=== PATIENT | female | born 1970 | race Caucasian/White ===

== ENCOUNTER → 2021-11-15 11:00 | Outpatient (BNVA) | payer BC, SELFPAY | PROVIDERS: PCP Family Medicine Adult Medicine; Visit Provider Registered Nurse Neonatal Intensive Care | DX: N39.0 Urinary tract infection, site not specified (principal); R39.9 Unspecified symptoms and signs involving the genitourinary system | CPT/HCPCS: 81000; 87086 ==

== ENCOUNTER 2021-12-20 08:57 | Outpatient (CLI) | payer BC, SELFPAY ==
--- NOTE | 2021-12-20 09:15 | US_ITS ---
WS: [id number] Complete ABDOMINAL ULTRASOUND HISTORY: left ureter obstruction COMPARISON: None available. Liver: 16.1 cm in length. Liver is normal size and echogenicity with no mass or intrahepatic dilatati on. Portal Vein: Normal hepatopetal flow with monophasic waveform. Gallbladder: Normally distended gallbladder. There is a mobile stone within the gallbladder. No peric holecystic fluid or gallbladder wall thickening. Largest diameter of the stone is 1.5 cm. Gallbladder wall thickness: 0.2 cm. Pancreas: Normal size and echogenicity. CBD: 0.5 cm. Right kidney: 10.2 cm x 5.4 cm x 5.4 cm. No mass, cortical thickening or hydronephrosis. Left kidney: 10.3 cm x 4.3 cm x 5.6 cm. No mass, cortical thickening or hydronephrosis. Spleen: Normal size and echogenicity. Abdominal aorta and IVC are within normal limits. No ascites. US/US abdomen complete* [id number] IMPRESSION: 1. Cholelithiasis without acute cholecystitis. 2. Otherwise normal abdominal ultrasound.
== END 2021-12-20 08:58 | disposition home or self-care (01) ==
PROVIDERS: PCP Family Medicine Adult Medicine; Visit Provider Family Medicine Adult Medicine
DX: N99.81 Other intraoperative complications of genitourinary system (principal); R30.1 Vesical tenesmus; S37.10XA Unspecified injury of ureter, initial encounter
CPT/HCPCS: 76700

== ENCOUNTER 2021-12-31 12:39 | Outpatient (CLI) | payer BC, SELFPAY ==
--- NOTE | 2021-12-31 12:57 | MM_ITS ---
WS: [id number] BILATERAL 3D TOMOSYNTHESIS DIGITAL SCREENING MAMMOGRAPHY WITH CAD CLINICAL INFORMATION: SCREENING HISTORY: Screening mammogram. No current complaints. COMPARISON: 02/26/2021 and 02/17/2021 TECHNIQUE: Bilateral CC and MLO views. FINDINGS: The breasts are composed of heterogeneous fibroglandular density tissue, which can limit the detectio n of small underlying mass lesions. A few tiny lucent centered and punctate calcifications. Biopsy cl ip RIGHT breast. No suspicious mass, asymmetry, calcifications, or architectural distortion. No evide nce of malignancy. MM/[id number] IMPRESSION: BI-RADS: 2-Benign FOLLOW UP: 1 Year Follow-up Recommend return to annual screening mammography.
== END 2021-12-31 12:40 | disposition home or self-care (01) ==
PROVIDERS: PCP Family Medicine Adult Medicine; Visit Provider Family Medicine Adult Medicine
DX: Z12.31 Encounter for screening mammogram for malignant neoplasm of breast (principal); R39.89 Other symptoms and signs involving the genitourinary system
CPT/HCPCS: 77063; 77067; 81003; 87086

== ENCOUNTER 2022-01-05 08:04 | Day surgery (SDC) | payer BC, SELFPAY ==
[2022-01-04 09:21] VITALS: BMI 33.9
[2022-01-05 08:32] VITALS: BP 111/60; PULSE 76; RESP 18; TEMP 36.1; O2SAT 94
[2022-01-05] MEDS: sodium chloride 0.9% 1,000 ML 30 ML IV (08:41)
--- NOTE | 2022-01-05 09:51 | ANES.PREANE2 ---
Pre-Anesthetic Assessment Height/Weight: Height 1.68 m Weight 95.254 kg Temp Pulse Resp BP Pulse Ox 97.0 F L 76 18 111/60 94 01/05/22 08:32 01/05/22 08:32 01/05/22 08:32 01/05/22 08:32 01/05/22 08:32 Operation Date: 01/05/22 10:15 Proposed Procedures p Colonoscopy 57481/Z12.11(Not Applicable) - Casper Dykes MD Familial anesthetic complications: None Was Beta Alyssa taken within 24 hours: N/A Was Clonidine taken within 24 hours: N/A Last intake: Intake Last Liquid Date 01/04/22 Last Liquid Time 22:30 Last Solid Date 01/03/22 Last Solid Time 18:00 Social Tobacco and No alcohol Exam alert, oriented x 3, clear to auscultation bilaterally and regular rate & rhythm Airway Submandibular: within normal limits Cervical ROM: within normal limits Mallampati: Class II Dentition: full Pulmonary Chronic Obstructive Pulmonary Disease recurrent UTI Metabolic Morbid Obesity Anesthetic Plan ASA status: 2 Anesthesia: MAC Medications/Allergies Home Medications Medication Instructions Recorded Confirmed Last Taken Type cholecalciferol (vitamin D3) 1,000 cap PO DAILY 11/24/21 01/04/22 01/03/22 History cranberry extract 4,200 mg PO TID 11/24/21 01/04/22 01/03/22 History oxybutynin chloride 10 mg See Rx Instructions .ROUTE 11/24/21 01/04/22 01/04/22 Rx tablet,extended release 24 hr .COMPLEX #90 tab gghiztn-hjcnrkeuf-xnrwui-zinc 1 tab PO DAILY tab 12/31/21 01/04/22 01/04/22 History tablet nitrofurantoin 100 mg PO BID #60 cap 12/31/21 01/04/22 01/04/22 Rx monohydrate/macrocrystals 100 mg capsule (Macrobid) estradiol 2 mg tablet 1 mg PO DAILY PRN 01/04/22 01/04/22 01/04/22 History Allergies Allergy/AdvReac Type Severity Reaction Status Date / Time Penicillins Allergy Intermediate ALGY-Rash Verified 12/31/21 09:47 Current Medications Generic Name Dose Route Start Last Admin Trade Name Freq PRN Reason Stop Dose Admin Sodium Chloride 1,000 mls @ 30 mls/hr 01/05/22 08:15 01/05/22 08:41 Sodium Chloride 0.9% IV 01/06/22 08:14 30 mls/hr .Q24H RICHARD Administration PFSH Anesthesia Medical History Bladder pain H/O CT scan of abdomen Injury of ureter during surgery 08/26/2021 CT urogram with and without contrast. 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, [place] exercises past for stress incontinence Obesity (BMI 30.0-34.9) Painful bladder spasm Participant in health and wellness plan Symptomatic postsurgical menopause Surgical History History of partial hysterectomy Hx of breast biopsy Family History Mother Cancer cervical Father , AT AGE 84 Cancer colon Other CAD (coronary artery disease) Dementia Social History Smoking and tobacco status: current every day smoker cigarettes Years cigarettes smoked: 0.5 Second hand smoke exposure: Yes Alcohol intake: current Alcohol intake frequency: 0-2 Drinks per Day Marital status: Current occupational status: unemployed History of recent travel: No Data Anesthesia Cardiac Studies: No Data to Display
--- NOTE | 2022-01-05 10:51 | P.HP_ITS ---
Same Day Surgery H&P Indication for Procedure/HPI DATE OF PROCEDURE: January 05, 2022 CHIEF COMPLAINT/INDICATIONFOR SURGICAL PROCEDURE: Screening colonoscopy PREOP DIAGNOSIS: Screening colonoscopy PLANNED PROCEDURE: Operation Date: 01/05/22 10:15 Proposed Procedures p Colonoscopy 09743/Z12.11(Not Applicable) - Casper Dykes MD Medications/Allergies* Home Medications Medication Instructions Recorded Confirmed Type cholecalciferol (vitamin D3) 1,000 cap PO DAILY 11/24/21 01/04/22 History cranberry extract 4,200 mg PO TID 11/24/21 01/04/22 History xaghlvj-zusnmdwbv-xaczxa-zinc 1 tab PO DAILY tab 12/31/21 01/04/22 History tablet estradiol 2 mg tablet 1 mg PO DAILY PRN 01/04/22 01/04/22 History Allergies/Adverse Reactions Allergy/AdvReac Type Severity Reaction Status Date / Time Penicillins Allergy Intermediate ALGY-Rash Verified 12/31/21 09:47 Current Medications: Generic Name Dose Route Start Last Admin Trade Name Freq PRN Reason Stop Dose Admin Sodium Chloride 1,000 mls @ 30 mls/hr 01/05/22 08:15 01/05/22 08:41 Sodium Chloride 0.9% IV 01/06/22 08:14 30 mls/hr .Q24H RICHARD Administration Pertinent History/Comorbid Conditions* Medical History (Updated 12/31/21 @ 10:47 by Germania Bruno APRN) Bladder pain H/O CT scan of abdomen Injury of ureter during surgery 08/26/2021 CT urogram with and without contrast. 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, [place] exercises past for stress incontinence Obesity (BMI 30.0-34.9) Painful bladder spasm Participant in health and wellness plan Symptomatic postsurgical menopause Surgical History (Updated 10/28/21 @ 15:38 by Jere Rausch MD) History of partial hysterectomy Hx of breast biopsy Family History (Updated 10/28/21 @ 14:55 by Clarissa Thompson LPN) Father, AT AGE 84 CAD (coronary artery disease) Dementia Cancer Mother cervical Father colon Social History Smoking and tobacco status: current every day smoker cigarettes Years cigarettes smoked: 0.5 Second hand smoke exposure: Yes Alcohol intake: current Alcohol intake frequency: 0-2 Drinks per Day Marital status: Current occupational status: unemployed History of recent travel: No Pertinent Exam Findings alert, oriented x 3 and regular rate & rhythm Recommendations Surgery/Procedure today Coding Level of Care Code Acute Ultrasound Sonographer for Fany Booth
[2022-01-05 11:35] VITALS: BP 109/60; PULSE 75; RESP 18; TEMP 36.6; O2SAT 96
[2022-01-05 11:45] VITALS: BP 113/88; PULSE 75; RESP 18; TEMP 36.6; O2SAT 95
--- NOTE | 2022-01-05 17:12 | ANE.PACU2 ---
Inpatient post-anesthesia follow up: Airway intact: Yes Vital signs: Temperature 97.8 F Pulse Rate 75 Respiratory Rate 18 Blood Pressure 113/88 Pulse Oximetry 95 Oxygen Delivery Me thod Room Air Oxygen Flow Rate Fraction of Inspir ed Oxygen Hydration adequate: Yes Nausea and vomiting: No Pain level: 1 Mental status: Baseline
== END 2022-01-05 12:07 | disposition home or self-care (01) ==
PROVIDERS: PCP Family Medicine Adult Medicine; Visit Provider Surgery
PROC: 0DJD8ZZ Inspection of Lower Intestinal Tract, Via Natural or Artificial Opening Endoscopic (ICD-10-PCS; CPT 45378; principal; 2022-01-05 10:15)
DX: Z12.11 Encounter for screening for malignant neoplasm of colon (principal); F17.210 Nicotine dependence, cigarettes, uncomplicated; K57.30 Diverticulosis of large intestine without perforation or abscess without bleeding; D12.5 Benign neoplasm of sigmoid colon; E66.01 Morbid (severe) obesity due to excess calories; Z68.33 Body mass index [BMI] 33.0-33.9, adult
CPT/HCPCS: 45385; 88305; J2405; J2704; J7030

== ENCOUNTER → 2022-02-01 15:03 | Outpatient (BNVA) | payer BC, SELFPAY | PROVIDERS: PCP Family Medicine Adult Medicine; Visit Provider Urology | DX: R39.89 Other symptoms and signs involving the genitourinary system (principal); R30.1 Vesical tenesmus | CPT/HCPCS: 81003 ==

== ENCOUNTER → 2022-03-11 11:56 | Outpatient (BNVA) | payer BC, SELFPAY | PROVIDERS: PCP Family Medicine Adult Medicine; Visit Provider Urology | DX: N99.81 Other intraoperative complications of genitourinary system (principal); S37.10XA Unspecified injury of ureter, initial encounter; X58.XXXA Exposure to other specified factors, initial encounter | CPT/HCPCS: 81003 ==

== ENCOUNTER → 2022-04-15 11:17 | Outpatient (BNVA) | payer BC, SELFPAY | PROVIDERS: PCP Family Medicine Adult Medicine; Visit Provider Urology | DX: N30.20 Other chronic cystitis without hematuria (principal); R39.89 Other symptoms and signs involving the genitourinary system | CPT/HCPCS: 81003 ==

== ENCOUNTER → 2022-06-14 08:51 | Outpatient (BNVA) | payer BC, SELFPAY | PROVIDERS: PCP Family Medicine Adult Medicine; Visit Provider Urology | DX: N30.20 Other chronic cystitis without hematuria (principal); R10.2 Pelvic and perineal pain; G89.29 Other chronic pain | CPT/HCPCS: 81003 ==

== ENCOUNTER → 2022-11-24 09:13 | Outpatient (BNVA) | payer BC, SELFPAY | PROVIDERS: PCP Family Medicine Adult Medicine; Visit Provider Nurse Practitioner Family | DX: R39.89 Other symptoms and signs involving the genitourinary system (principal); E89.41 Symptomatic postprocedural ovarian failure; Z78.9 Other specified health status; N30.20 Other chronic cystitis without hematuria | CPT/HCPCS: 80053; 81000; 82672; 83036; 84144; 84443; 85025; 87086 ==

== ENCOUNTER → 2022-12-13 12:29 | Outpatient (BNVA) | payer BC, SELFPAY | PROVIDERS: PCP Family Medicine Adult Medicine; Visit Provider Nurse Practitioner Women's Health | DX: R10.32 Left lower quadrant pain (principal); Z90.710 Acquired absence of both cervix and uterus | CPT/HCPCS: 76830 ==

== ENCOUNTER 2023-02-14 08:08 | Outpatient (CLI) | payer BC, SELFPAY ==
--- NOTE | 2023-02-14 | MM_ITS ---
WS: [id number] BILATERAL 3D TOMOSYNTHESIS DIGITAL SCREENING MAMMOGRAPHY WITH CAD CLINICAL INFORMATION: SCREENING HISTORY: Screening mammogram. No current complaints. COMPARISON: 2021 TECHNIQUE: Bilateral CC and MLO views. FINDINGS: The breasts are composed of heterogeneous fibroglandular density tissue, which can limit the detectio n of small underlying mass lesions. No suspicious mass, asymmetry, calcifications, or architectural d istortion. No evidence of malignancy. Incidental punctate and lucent centered calcifications. Biopsy marker RIGHT breast. Partially obscure d oval nodules LEFT breast appear stable since 2020. Previously demonstrated to represent breast cysts on the ultrasound 2020 MM/[id number] IMPRESSION: BI-RADS: 2-Benign FOLLOW UP: 1 Year Follow-up Recommend return to annual screening mammography.
== END 2023-02-14 08:09 | disposition home or self-care (01) ==
PROVIDERS: PCP Family Medicine Adult Medicine; Visit Provider Family Medicine Adult Medicine
DX: Z12.31 Encounter for screening mammogram for malignant neoplasm of breast (principal)
CPT/HCPCS: 77063; 77067

== ENCOUNTER 2024-02-21 07:53 | Outpatient (CLI) | payer BC, SELFPAY ==
--- NOTE | 2024-02-21 07:57 | MM_ITS ---
WS: [id number] BILATERAL SCREENING DIGITAL TOMOSYNTHESIS MAMMOGRAM WITH CAD HISTORY: SCREENING COMPARISON: 02/14/2023, 12/31/2021 and 02/17/2021 Bilateral CC and MLO views with tomosynthesis and synthetic mammography submitted. Computer aided det ection analyzed. Breast composition: The breasts are heterogeneously dense, which may obscure small masses. No suspici ous masses, microcalcifications or architectural distortion. Dense asymmetries in each breast but gre ater in the LEFT breast. There are several masses in the LEFT breast which have been previously descr ibed without increase in size. The overall the areas of density and asymmetry have remained stable. MM/[id number] IMPRESSION: BI-RADS: 2-Benign FOLLOW UP: 1 Year Follow-up
== END 2024-02-21 07:54 | disposition home or self-care (01) ==
LOC: RAD 07:54
PROVIDERS: PCP Family Medicine Adult Medicine; Visit Provider Nurse Practitioner Women's Health
DX: Z12.31 Encounter for screening mammogram for malignant neoplasm of breast (principal); R92.333 Mammographic heterogeneous density, bilateral breasts; N64.89 Other specified disorders of breast
CPT/HCPCS: 77063; 77067